=== PATIENT | male | born 1960 | race Two or more races ===

== ENCOUNTER 2020-10-27 09:20 | Emergency (ER) | payer OTHER, SELFPAY ==
[2020-10-27 11:08] VITALS: BP 128/65; PULSE 66; RESP 18; TEMP 37.1; O2SAT 96; BMI 29.7
--- NOTE | 2020-10-27 12:16 | ED_ITS ---
HPI - General Adult General Chief complaint: Skin/Abscess/Foreign Body Stated complaint: abd pain Source: patient Mode of arrival: ambulatory Limitations: no limitations History of Present Illness HPI narrative: Patient presents to for lump in the umbilical area that bulges out when he stands up and go back in when he lies down flat. Patient states no nausea, vomiting, fever, chills, constipation, pus discharge, or foul odor from umbilical lump Related Data Previous Rx's Medication Instructions Recorded docusate sodium [Colace] 100 mg PO BID #14 cap 10/27/20 naproxen 500 mg PO BID PRN #20 tab 10/27/20 Allergies Allergy/AdvReac Type Severity Reaction Status Date / Time No Known Allergies Allergy Verified 10/27/20 11:08 Review of Systems Review of Systems: Yes all other systems are reviewed and are negative Constitutional: Constitutional: Reports as per HPI and Reports no additional constitutional complaints Eyes: Eyes: Reports as per HPI and Reports no additional eye complaints ENT: Reports system reviewed and no additional complaints, except as documented and Reports as per HPI Cardiovascular: Cardiovascular: Reports as per HPI and Reports no additional cardiovascular complaints Respiratory: Respiratory: Reports as per HPI and Reports no additional respiratory complaints Gastrointestinal: Gastrointestinal: Reports as per HPI and Reports no additional gastrointestinal complaints Comments: Umbilical lump Genitourinary: Genitourinary: Reports no additional male genitourinary complaints and Reports as per HPI Musculoskeletal: Musculoskeletal: Reports no additional musculoskeletal complaints and Reports as per HPI Neurologic: Reports system reviewed and no additional complaints, except as documented and Reports as per HPI Psychiatric: Psychiatric: Reports no additional psychiatric complaints and Reports as per HPI [facility] Past Medical History Medical History Patient denies medical problems Social History Social History Smoked in Last 30 Days: No Use of substances other than those prescribed or required for medical reasons: No Advance Directives: No Advance Directives Information Provided: No Physical Exam Vital Signs: Vital Signs: Last Vital Signs Temp 98.7 F 10/27/20 11:08 Pulse 66 10/27/20 11:08 Resp 18 10/27/20 11:08 BP 128/65 10/27/20 11:08 Pulse Ox 96 10/27/20 11:08 Body Mass Index 29.7 Const: General: cooperative, healthy appearing, comfortable, no acute distress, well developed, alert, awake and Physically active Orientation/consciousness: patient oriented x3 HENMT: Head: Yes normal to inspection, Yes No palpable skull fracture present, Yes normocephalic, Yes atraumatic, No abrasion, No Villareal's sign, No contusion, No cranial bruits, No hematoma, No laceration, No occipital foramen tenderness, No palpable skull fracture, No raccoon eyes, No scalp tenderness, No Temporal artery tenderness present and No periorbital ecchymosis Eyes: General: appearance normal, both eyes and all related structures Neck: Neck: Yes normal visual inspection, Yes full ROM, Yes no lymphadenopathy, Yes no meningeal signs, Yes trachea midline, Yes supple and No tender Chest: Chest palpation & inspection: normal inspection of the chest and normal palpation of entire chest wall Resp: Effort & Inspection: normal respiratory effort and able to speak in complete sentences Auscultation: clear to auscultation bilaterally Cardio: Jugular venous distension: no JVD Heart sounds: S1 normal heart sound present and S2 normal heart sound present GI: Other: umbilical hernia: negative for any redness, pus discharge, foul odor, or tenderness. Umbilical hernia is reducible and very small, size of thumb. Inspection: Yes normal to inspection Palpation (GI): Soft to palpation, not firm, nontender, no guarding, not rigid and Hernia present umbilical (Very small leuko hernia that is reducible and nontender) : General: No CVA tenderness and Yes no CVA tenderness Back/Spine/Pelvis: Back: no CVA tenderness, No CVA tenderness and No back tenderness Skin: General skin exam: no rashes or lesions noted and elasticity normal Neuro: General: patient oriented x3, no meningeal signs and CN's II-XI intact bilaterally Cranial nerves: Yes CN's II-XII intact bilaterally Extrem: General: Yes normal to inspection and Yes full ROM Psych: Appearance: grossly normal, well kempt and not disheveled Course Course Course Narrative: History physical exam indicate umbilical hernia that is not incarcerated. History physical exam does not indicate abscess, cellulitis, or fistula Reevaluation(s) Reevaluation #1: Patient informed he should follow up with outpatient surgery for further evaluation and schedule elective hernia repair if indicated. Patient explains signs of incarcerated hernia and told to return to the ED if he has the symptoms. Patient also explains signs of cellulitis, abscess, small bowel obstruction and fistula and told to come back to ED immediately if he has those symptoms or any other concerning symptoms. Patient will be discharged with Colace to prevent straining/constipation. Presently patient denies any constipation, nausea, or vomiting. Not suspecting bowel obstruction. Time: 12:23 Medical Decision Making MDM Narrative Medical decision making narrative: Umbilical hernia Discharge Plan Discharge Clinical Impression: Hernia, umbilical Patient Disposition: Home, Self-Care Instructions: Umbilical Hernia (ED) Additional Instructions: Return to ED for severe abdominal pain, hernia not be able to be reduced, redness, pus discharge, foul odor, fever, chills, any other concerning symptoms. Prescriptions: New docusate sodium [Colace] 100 mg capsule 100 mg PO BID Qty: 14 RF: 0 naproxen 500 mg tablet 500 mg PO BID PRN (Reason: pain) Qty: 20 RF: 0 Referrals: Roberth You MD [Physician] - 2 days (Umbilical hernia.) Interventions: ED Discharge Assessment Last Done: 10/27/20 12:38 Discharge Date/Time: 10/27/20 12:38 Print Language: Taiwanese
== END 2020-10-27 12:38 | disposition home or self-care (01) ==
PROVIDERS: Emergency Provider Emergency Medicine
DX: K42.9 Umbilical hernia without obstruction or gangrene (principal)
CPT/HCPCS: 99283

== ENCOUNTER → 2020-11-12 15:21 | Outpatient (BNVA) | payer OTHER, SELFPAY | PROVIDERS: PCP Internal Medicine; Visit Provider Surgery ==

== ENCOUNTER 2020-11-24 06:07 | Day surgery (SDC) | payer OTHER, SELFPAY ==
[2020-11-13 17:51] VITALS: BMI 29.5
--- NOTE | 2020-11-23 08:29 | P.CONAN_ITS ---
Documented by User: Beverly Ortiz 11/23/20 08:29 HPI - Anesthesia Eval Consult details Narrative: 60yo M for Hernia Repair Umbilical with Mesh PMFSH Active Problems Active Problems: All Active Problems (Updated 11/12/20 @ 15:46 by Roberth You MD) Umbilical hernia (Acute) Past Medical History Medical History Patient denies medical problems Umbilical hernia Family History Family History Mother Leukemia Social History Social History Alcohol intake: never Smoking Status: Never smoker Advance Directives: No Advance Directives Information Provided: No Advance Directives on File: No Meds Allergies Allergy/AdvReac Type Severity Reaction Status Date / Time No Known Allergies Allergy Verified 11/24/20 06:27 Home Medications Medication Instructions Recorded Confirmed Last Taken Type docusate sodium [Colace] 100 mg PO BID PRN 11/13/20 11/13/20 Unknown History Exam Exam Date and Time: November 23, 2020 0829 Height,Weight and Vital Signs: Height 5 ft 8 in Weight 87.997 kg Assessment and Plan Assessment Anesthesia Assessment: Chart Reviewed Documented by User: Savanah Wilson 11/24/20 07:43 PMFSH Past Medical History Medical History Patient denies medical problems Umbilical hernia Family History Family History Mother Leukemia Family history of problems with anesthesia: No Surgical History History of Problems with Anesthesia: No (Never had anesthesia) Social History Social History Alcohol intake: never Smoking Status: Never smoker Advance Directives: No Advance Directives Information Provided: No Advance Directives on File: No Meds Allergies Allergy/AdvReac Type Severity Reaction Status Date / Time No Known Allergies Allergy Verified 11/24/20 06:27 Home Medications Medication Instructions Recorded Confirmed Last Taken Type docusate sodium [Colace] 100 mg PO BID PRN 11/13/20 11/13/20 Unknown History Exam Height,Weight and Vital Signs: Vital Signs Temp Pulse Resp BP Pulse Ox 11/24/20 06:28 97.9 F 77 16 138/80 96 Airway Mallampati Class: III TM Dist: >3cm Neck ROM: Full Partial: Upper Heart: RRR Lungs: CTAB Assessment and Plan Assessment Anesthesia Assessment: Anesthesia Plan Discussed and Chart Reviewed Final Anesthetic Review NPO: Yes ASA Class: I Final Preanesthetic Review: No Changes in Pt Med Stat, Meds/Allgs Chart Review ed, Consent Obtained/Reviewed and Anes Risks/Benef Reviewed Patient Risk: Low Procedure Risk: Low Assessment/Block/Sedation in SS: Assess/Block/Sedation-SS Anesthetic Plan Anesthetic Plan: GA Disposition: Standard PACU
[2020-11-24 06:28] VITALS: BP 138/80; PULSE 77; RESP 16; TEMP 36.6; O2SAT 96
[2020-11-24] MEDS: Lactated Ringers 1,000 ML 100 ML IVCONT (06:35)
--- NOTE | 2020-11-24 07:28 | MHC.SHP ---
Pre-Procedural Eval Section B Chief Complaint: Umbilical hernia Allergies: Allergies Allergy/AdvReac Type Severity Reaction Status Date / Time No Known Allergies Allergy Verified 11/24/20 06:27 Plan I have reviewed the history and physical and performed a pertinent physical examination on my patient. No changes have occurred unless specified.
--- NOTE | 2020-11-24 08:06 | P.OP_ITS ---
Operative Note Operative Note Date of Service: 11/24/20 Narrative: PREOP DIAGNOSIS: UMBILICAL HERNIA POSTOP DIAGNOSIS: UMBILICAL HERNIA PROCEDURE: REPAIR OF UMBILICAL HERNIA WITH VENTRALEX MESH SURGEON: HÉCTOR HERNANDEZ MD FIRST ASST: MARELY ESPINO The patient is a 60M with a partially reducible mass on the umbilicus c/w an umbilIcal hernia. He wanted to proceed with repair. He understood the technique of the procedure as well as the risks, benefits and alternatives. He was brought to the OR and placed supine on the table under general anesthesia via LMA. The abdomen was prepped and draped in the usual sterile fashion. A surgical timeout was done. The patient received Cefazolin 2 g IV preop. A transverse supraumbilical incision was made using a blade 15. This was carried down through the full thickness of the skin and subcutaneous layer until the hernia was visualized. The hernia contained only fat. I dissected the umbilicus off of the hernia as a flap with electrocautery and scissors. I continued to dissect the hernia down to the fascial edge. I freed up the hernia from the fascial edge by dividing fibrous tissue using scissors and electrocautery. The hernia was competely reduced. Palpation of the underside of the fascia showed margins were free with room for the mesh. The hernia defect was about 1.5-2 cm in diameter. I positioned a small sized Ventralex mesh under the fascia and this was flattened. I secured the mesh with Prolene 2-0 sutures through the Prolene straps and the fascia. I trimmed both straps flush on the fascial level. I closed the fasica with a figure of eight Maxon 1-0 stitch. The subcutaneous layer was reaaposed with Dexon 3-0 interrupted sutures. Skin closer was achieved with Dexon 4-0 subcuticular running sutures. Steristrips and dressings were applied. The incision was infiltrated with Marcain .5% for postop analgesia. Raimundo ritrips and dressings were applied. The patient tolerated the procedure well. Initial and final counts of sponges and isntruments were correct. EBL was less than 5 cc. The patient was extubated without difficulty and transferred to the PACU with stable VS.
[2020-11-24 08:10] VITALS: BP 133/72; PULSE 75; RESP 16; TEMP 36.4; O2SAT 97
[2020-11-24 08:15] VITALS: BP 124/79; PULSE 69; RESP 16; O2SAT 99
--- NOTE | 2020-11-24 08:16 | PM.OP ---
Brief Operative Note Date of Service: 11/24/20 <ORESTES Edwards Last Filed: 11/24/20 08:16> Pre-op diagnosis: Umbilical hernia <ORESTES Edwards Last Filed: 11/24/20 08:16> Post-op diagnosis: same <ORESTES Edwards Last Filed: 11/24/20 08:16> Procedure: repair of umbilical hernia with mesh <ORESTES Edwards Last Filed: 11/24/20 08:16> Implants: Ventralex, small <ORESTES Edwards Last Filed: 11/24/20 08:16> Surgeon: HÉCTOR HERNANDEZ MD <ORESTES Edwards Last Filed: 11/24/20 08:16> Anesthesia: GLMA <ORESTES Edwards Last Filed: 11/24/20 08:16> Financial Reporting Advisor: Daniella Lyons <ORESTES Edwards Last Filed: 11/24/20 08:16> Estimated blood loss (mL): 5 <ORESTES Edwards Last Filed: 11/24/20 08:16> Pathology: none sent <ORESTES Edwards Last Filed: 11/24/20 08:16> Condition: stable <ORESTES Edwards Last Filed: 11/24/20 08:16> Disposition: PACU <ORESTES Edwards Last Filed: 11/24/20 08:16>
[2020-11-24 08:20] VITALS: BP 133/80; PULSE 68; RESP 16; O2SAT 99
[2020-11-24 08:25] VITALS: BP 117/87; PULSE 74; RESP 16; O2SAT 96
[2020-11-24 08:40] VITALS: BP 116/87; PULSE 66; RESP 16; TEMP 36.2; O2SAT 95
== END 2020-11-24 09:04 | disposition home or self-care (01) ==
PROVIDERS: Visit Provider Surgery
PROC: (CPT 49585; principal; 2020-11-24 07:30)
DX: K42.9 Umbilical hernia without obstruction or gangrene (principal)
CPT/HCPCS: 49585; C1781; J0690; J1100; J2250; J2405; J3010

== ENCOUNTER → 2020-12-07 09:22 | Outpatient (BNVA) | payer OTHER, SELFPAY | PROVIDERS: Visit Provider Surgery ==

== ENCOUNTER 2022-11-19 08:07 | Outpatient (REF) | payer OTHER, SELFPAY ==
[2022-11-19 08:26] LABS: MANUAL DIFF FLAG NO
[2022-11-19 08:46] LABS: Basophils Percent Auto 0.6 % (0-2); Eosinophils Absolute Auto 0.2 X10*3/uL (0.0-0.4); Eosinophils Percent Auto 3.3 % (0-4); Hematocrit 45.1 % (42.0-52.0); Hemoglobin 15.5 g/dl (14.0-18.0); Imm Gran Abs Auto 0.02 X10*3/uL (0.00-0.03); Imm Gran Pct Auto 0.3 % (0.0-0.4); Lymphocytes Absolute Auto 2.2 X10*3/uL (1.2-4.9); Lymphocytes Percent Auto 30.1 % (20-40); Mean Corpuscular HGB Conc 34.4 g/dl (31.0-36.0); Mean Corpuscular Hemoglobin 33.7 pg (27.0-33.0); Mean Platelet Volume 9.1 fL (9.4-12.4); Monocytes Absolute Auto 0.7 X10*3/uL (0.1-1.2); Monocytes Percent Auto 9.6 % (2-11); Neutrophils Absolute Auto 4.1 x10*3/uL (2.0-8.3); Neutrophils Percent Auto 56.1 % (45-73); Platelet Count 305 X10*3/uL (160-400); Red Cell Distribution Width 13.2 % (11.0-16.0); White Blood Count 7.2 X10*3/uL (4.8-10.8)
[2022-11-19 09:48] LABS: Alanine Aminotransferase 35 U/L (0-40); Alkaline Phosphatase 52 U/L (39-117); Anion Gap 13 (12-20); Aspartate Amino Transferase 23 U/L (5-37); Bilirubin Total 0.5 mg/dL (0.0-1.0); Blood Urea Nitrogen 17 mg/dL (9-16); Carbon Dioxide 29 mmol/L (22-29); Chloride 102 mmol/L (96-108); Cholesterol 226 mg/dL; Estimated Glomerular Filt Rate > 60; Glucose Fasting 130 mg/dL (60-99); HDL Cholesterol 40 mg/dL; LDL Cholesterol Calculated 160 mg/dl; Potassium 4.4 mmol/L (3.3-5.1); Prostate Specific Antigen 1.66 ng/mL (<0.05-4.0); Sodium 140 mmol/L (135-145); TSH reflex Free T4 2.86 uIU/mL (0.32-4.0); Total Protein 7.2 g/dL (6.5-8.0); Triglycerides 130 mg/dL; Vitamin D 25-OH Total 11.4 ng/mL (>30)
== END 2022-11-19 08:08 | disposition home or self-care (01) ==
LOC: HO.LAB 08:07
PROVIDERS: PCP Nurse Practitioner Family; Visit Provider Nurse Practitioner Family
DX: Z12.5 Encounter for screening for malignant neoplasm of prostate (principal); K21.9 Gastro-esophageal reflux disease without esophagitis; E78.5 Hyperlipidemia, unspecified; E55.9 Vitamin D deficiency, unspecified; G47.00 Insomnia, unspecified
CPT/HCPCS: 36415; 80053; 80061; 82306; 84153; 84443; 85025

== ENCOUNTER 2023-02-15 14:12 | Outpatient (REF) | payer OTHER, SELFPAY ==
[2023-02-15 15:20] LABS: Estimated Average Glucose 120 mg/dL; Hemoglobin A1c % 5.8 %
[2023-02-15 15:35] LABS: Cholesterol 218 mg/dL; HDL Cholesterol 41 mg/dL; LDL Cholesterol Calculated 123 mg/dl; Triglycerides 272 mg/dL
[2023-02-15 15:51] LABS: Vitamin D 25-OH Total 18.3 ng/mL (>30)
== END 2023-02-15 14:13 | disposition home or self-care (01) ==
LOC: HO.LAB 14:12
PROVIDERS: PCP Nurse Practitioner Family; Visit Provider Nurse Practitioner Family
DX: R79.89 Other specified abnormal findings of blood chemistry (principal); E78.5 Hyperlipidemia, unspecified; R73.01 Impaired fasting glucose
CPT/HCPCS: 36415; 80061; 82306; 83036